=== PATIENT | female | born 1995 | race Caucasian/White ===

== ENCOUNTER 2016-10-25 09:52 | Emergency (ER) | payer SELFPAY ==
[2016-10-25] MEDS ORDERED: ACETAMINOPHEN 325 MG TAB ONE (12:35)
== END 2016-10-25 14:22 | disposition home or self-care (01) ==
LOC: ER 09:52
CPT/HCPCS: 36415; 80053; 81001; 82947; 85025; 87088

== ENCOUNTER 2016-11-15 07:44 | Observation (INO) | payer SELFPAY ==
[~2016-11-15] VITALS: Ht 167.6 cm; Wt 61.2 kg
[2016-11-15] MEDS ORDERED: DIPHENHYDRAMINE 50 MG/ML VIAL ONE (08:48)
[2016-11-15] MEDS ORDERED: KETOROLAC 30 MG/ML VIAL ONE (08:48)
[2016-11-15] MEDS ORDERED: PROMETHAZINE 25 MG/ML VIAL ONE (08:48)
[2016-11-15] MEDS ORDERED: SODIUM CHLORIDE 0.9% 1,000 ML ONE (08:48)
[2016-11-15] MEDS ORDERED: LORAZEPAM 2 MG/ML VIAL ONE (09:09)
[2016-11-15] MEDS ORDERED: LORAZEPAM 2 MG/ML VIAL IV PRN (12:40)
[2016-11-15] MEDS ORDERED: SODIUM CHLOR 0.9% W/KCL 20MEQ 1,000 ML IV SCH (12:40)
[2016-11-15 12:58] VITALS: BP_SYST 109; BP_SYST 110; RESP 18; TEMP 97.9
[2016-11-15 13:00] VITALS: Ht 167.6 cm; Wt 61.2 kg
[2016-11-15] MEDS: SODIUM CHLOR 0.9% W/KCL 20MEQ 1,000 ML IV SCH (13:44)
[2016-11-15] MEDS: KEPPRA 500 MG in SOD CHLOR 0.9% INJ 100 ML IV SCH (13:44)
[2016-11-15 15:50] VITALS: BP_SYST 96; RESP 18; TEMP 98.2
[2016-11-15 20:30] VITALS: BP_SYST 100; RESP 16; TEMP 97.5
[2016-11-15] MEDS: TOPIRAMATE 100 MG TAB PO SCH (20:40)
[2016-11-15 23:42] VITALS: BP_SYST 109; RESP 16; TEMP 98.6
[2016-11-16] MEDS: KEPPRA 500 MG in SOD CHLOR 0.9% INJ 100 ML IV SCH (00:02)
[2016-11-16] MEDS: ACETAMINOPHEN 325 MG TAB PO PRN ×2 (00:07→06:48)
[2016-11-16] MEDS: SODIUM CHLOR 0.9% W/KCL 20MEQ 1,000 ML IV SCH (02:05)
[2016-11-16 04:30] VITALS: BP_SYST 100; RESP 14; TEMP 98.8
[2016-11-16 07:35] VITALS: BP_SYST 102; RESP 16; TEMP 98.5
[2016-11-16] MEDS: TOPIRAMATE 100 MG TAB PO SCH (08:09)
[2016-11-16 11:10] VITALS: BP_SYST 102; RESP 16; TEMP 98.5
[2016-11-16 11:18] VITALS: BP_SYST 105; RESP 16; TEMP 98.7
== END 2016-11-16 10:05 | disposition home or self-care (01) ==
LOC: ENRESERVTM → ENRESERVDT → ER 07:44 → ENPENDDIS 10:56 → EMR 10:56 → PCU 12:55
PROVIDERS: ADMIT Internal Medicine; ATTEND Internal Medicine
DX: R56.9 Unspecified convulsions (principal); G43.909 Migraine, unspecified, not intractable, without status migrainosus; F41.9 Anxiety disorder, unspecified; Z79.899 Other long term (current) drug therapy
CPT/HCPCS: 36415; 70450; 80053; 81001; 82947; 85025; 96361; 96374; 96375